=== PATIENT | male | born 1990 | race Caucasian/White ===

== ENCOUNTER 2020-01-23 14:50 | Emergency (ER) | payer OTHER ==
[2020-01-23 15:10] VITALS: BP 124/77; PULSE 82; RESP 18; TEMP 98.5
[2020-01-23] MEDS ORDERED: KETOROLAC 15 MG/ML 1 ML VIAL IM STA (15:50)
[2020-01-23] MEDS ORDERED: CYCLOBENZAPRINE 5 MG TAB PO STA (15:51)
--- NOTE | 2020-01-23 16:15 | XR ---
EXAMINATION TYPE: XR cervical spine comp DATE OF EXAM: 01/23/2020 COMPARISON: None HISTORY: 29-year-old male neck pain for one week TECHNIQUE: 5 views FINDINGS: No predental space widening or prevertebral soft tissue swelling. Reversal of the normal cervical maria e dosis but with preserved alignment. Minimal scattered facet spurring present. Disc interspaces are ma intained. No significant bony neuroforaminal narrowing on either side. Normal odontoid view. IMPRESSION: Reversal of the normal cervical lordosis could be positional or due to muscle spasm. No malalignment. No significant bony neuroforaminal narrowing on either side.
--- NOTE | 2020-01-23 16:56 | ED ---
General Adult HPI - General Chief complaint: Neck Pain/Injury Stated complaint: Back Pain Time Seen by Provider: 01/23/20 15:15 Source: patient, RN notes reviewed, old records reviewed Mode of arrival: ambulatory Limitations: no limitations - History of Present Illness Initial comments: 29-year-old male patient no pertinent past medical history of present to ED for evaluation of right paracervical pain with some radiation down his right arm. Patient reports that he recent started working out and then began experienced this. Denies any recent falls or trauma. Denies any weakness. Denies any other acute complaints. Systemic: Pt denies fatigue, fever/chills, rash. Pt denies weakness, night sweats, weight loss. Neuro: Pt denies headache, visual disturbances, syncope or pre-syncope. HEENT: Pt denies ocular discharge or irritation, otalgia, rhinorrhea, pharyngitis or notable lymphadenopathy. Cardiopulmonary: Pt denies chest pain, SOB, heart palpitations, dyspnea on exertion. Abdominal/GI: Pt denies abdominal pain, n/v/d. : Pt denies dysuria, burning w/ urination, frequency/urgency. Denies new onset urinary or bowel incontinence. MSK: Pt denies myalgia, loss of strength or function in extremities. Neuro: Pt denies new onset weakness, paresthesias. - Related Data Previous Rx's Medication Instructions Recorded Cyclobenzaprine [Flexeril] 1 tab PO TID PRN #15 tablet 01/23/20 predniSONE 50 mg PO DAILY #4 tab 01/23/20 Allergies Allergy/AdvReac Type Severity Reaction Status Date / Time amoxicillin Allergy Rash/Hives Verified 01/23/20 15:11 Review of Systems ROS Statement: Those systems with pertinent positive or pertinent negative responses have been documented in the HPI. ROS Other: All systems not noted in ROS Statement are negative. Past Medical History Past Medical History: No Reported History History of Any Multi-Drug Resistant Organisms: None Reported Past Surgical History: No Surgical Hx Reported Past Psychological History: Anxiety Smoking Status: Current every day smoker Past Alcohol Use History: Rare Past Drug Use History: Marijuana General Exam - General Exam Comments Initial Comments: Constitutional: NAD, AOX3, Pt has pleasant affect. HEENT: NC/AT, trachea midline, neck supple, no lymphadenopathy. Posterior pharynx non erythematous, without exudates. External ears appear normal, without discharge. Mucous membranes moist. Eyes PERRLA, EOM intact. There is no scleral icterus. No pallor noted. Cardiopulmonary: RRR, no murmurs, rubs or gallops, no JVD noted. Lungs CTAB in anterior and posterior pope. No peripheral edema. Abdominal exam: Abdomen soft and non-distended. Abdomen non-tender to palpation in all 4 quadrants. Bowel sounds active in LLQ. No hepatosplenomegaly. No ecchymosis Neuro: CN II-XII intact. No nuchal rigidity. No raccon eyes, no edmond sign, no hemotympanum. No cervical spinal tenderness. MSK: No posterior calf tenderness bilaterally, homans sign negative bilaterally. Posterior tibialis and radial pulse +2 bilaterally. Sensation intact in upper and lower extremities. Full active ROM in upper and lower extremities, 5/5 stregnth. Limitations: no limitations Course Vital Signs 01/23/20 15:07 Temperature 98.5 F Pulse Rate 82 Respiratory 18 Rate Blood Pressure 124/77 O2 Sat by Pulse 98 Oximetry Medical Decision Making - Medical Decision Making 29-year-old male patient with the chief complaint of muscle strain right paracervical region radiating down the right arm and some waxing waning subjective paresthesias. Patient vital signs are stable, afebrile. Strength is intact. There is no focal area of pain or tenderness. No skin changes. No nuchal rigidity. Films displayed reversal of the normal cervical lordosis could be positional due to muscle spasm. No malalignment. No significant bony neuroforaminal narrowing on either side. Patient will be placed on serial anti- inflammatories for steroid treatment will discharge the patient orthopedic and primary care follow-up. Case discussed with Dr. Sloan. Disposition Clinical Impression: Cervical strain, Cervical radiculopathy Disposition: HOME SELF-CARE Condition: Stable Instructions (If sedation given, give patient instructions): Cervical Sprain (ED), Cervical Radiculopathy (ED) Additional Instructions: Take steroids as directed. Follow up with primary care provider and orthopedic consult tomorrow. May use muscle relaxers as needed or muscle spasm. Use nonsteroidal anti-inflammatories for pain. Return to ER with any worsening symptoms. Prescriptions: Cyclobenzaprine [Flexeril] 1 tab PO TID PRN #15 tablet PRN Reason: muscle spasm predniSONE 50 mg PO DAILY #4 tab Is patient prescribed a controlled substance at d/c from ED?: No Referrals: None,Stated [Primary Care Provider] - 1-2 days Christine Min DO [Doctor of Osteopathic Medicine] - 1-2 days
== END 2020-01-23 17:15 | disposition home or self-care (01) ==
LOC: EC 14:50
DX: S16.1XXA Strain of muscle, fascia and tendon at neck level, initial encounter (principal); M54.12 Radiculopathy, cervical region; F17.200 Nicotine dependence, unspecified, uncomplicated; Z88.0 Allergy status to penicillin; X58.XXXA Exposure to other specified factors, initial encounter
CPT/HCPCS: 72050; 99284; 96372; J1885

== ENCOUNTER 2020-08-10 10:23 | Emergency (ER) | payer OTHER ==
[2020-08-10 10:33] VITALS: PULSE 87; RESP 17; TEMP 98.6
--- NOTE | 2020-08-10 10:47 | ED ---
General Adult HPI - General Chief complaint: Nausea/Vomiting/Diarrhea Stated complaint: Vomitting,Nausea,Dizzy Source: patient, RN notes reviewed Mode of arrival: ambulatory Limitations: no limitations - History of Present Illness Initial comments: 30-year-old male presented emergency department with possible exposure to carbon monoxide over the last several months. He noted that he lives with his mother and they recently got a new furnace that has been producing a foul-smelling odor. A furnace kristin was contacted become look at the new furnace. She was in no apparent distress or pain while sitting in the exam room during the exam and interview. She denied any shortness of breath cough chest pain somnolence vomiting diarrhea constipation fever fatigue chills. Patient does report that he smokes relate quite frequently and daily, noted that he smokes too much and needs to quit. - Related Data Home Medications Medication Instructions Recorded Confirmed No Known Home Medications 08/10/20 08/10/20 Allergies Allergy/AdvReac Type Severity Reaction Status Date / Time amoxicillin Allergy Rash/Hives Verified 08/10/20 11:57 Review of Systems ROS Statement: Those systems with pertinent positive or pertinent negative responses have been documented in the HPI. ROS Other: All systems not noted in ROS Statement are negative. Past Medical History Past Medical History: No Reported History History of Any Multi-Drug Resistant Organisms: None Reported Past Surgical History: No Surgical Hx Reported Past Psychological History: Anxiety Smoking Status: Vaper Past Alcohol Use History: Rare Past Drug Use History: Marijuana General Exam Limitations: no limitations General appearance: alert, in no apparent distress Head exam: Present: atraumatic, normocephalic, normal inspection Eye exam: Present: normal appearance, PERRL, EOMI. Absent: scleral icterus, conjunctival injection, periorbital swelling ENT exam: Present: normal exam, mucous membranes moist Neck exam: Present: normal inspection. Absent: tenderness, meningismus, lymphadenopathy Respiratory exam: Present: normal lung sounds bilaterally. Absent: respiratory distress, wheezes, rales, rhonchi, stridor Cardiovascular Exam: Present: regular rate, normal rhythm, normal heart sounds. Absent: systolic murmur, diastolic murmur, rubs, gallop, clicks GI/Abdominal exam: Present: soft, normal bowel sounds. Absent: distended, tenderness, guarding, rebound, rigid Extremities exam: Present: normal inspection, full ROM, normal capillary refill. Absent: tenderness, pedal edema, joint swelling, calf tenderness Neurological exam: Present: alert, oriented X3, CN II-XII intact Psychiatric exam: Present: normal affect, normal mood Skin exam: Present: warm, dry, intact, normal color. Absent: rash Course Vital Signs 08/10/20 10:30 Temperature 98.6 F Pulse Rate 87 Respiratory 17 Rate Blood Pressure 181/75 O2 Sat by Pulse 98 Oximetry Medical Decision Making - Medical Decision Making 30-year-old male complaining of possible exposure to carbon monoxide. Venous blood gas carbon monoxide nonrebreather with 15 L/m, CBC, CMP ordered. Labs unremarkable, carbon monoxide 2.5, patient is a smoker. Case discussed with Dr. Lindsay, patient could discharge home. - Lab Data Result diagrams: 08/10/20 11:24 Lab Results 08/10/20 08/10/20 08/10/20 Range/Units 11:24 11:24 11:24 VBG pH 7.39 (7.31-7.41) VBG pCO2 40 (37-51) mmHg VBG HCO3 24 (24-28) mmol/L Carbon Monoxide, Quant 2.5 (<10.0) % Sodium 138 (137-145) mmol/L Potassium 4.5 (3.5-5.1) mmol/L Chloride 103 (98-107) mmol/L Carbon Dioxide 23 (22-30) mmol/L Anion Gap 12 mmol/L BUN 12 (9-20) mg/dL Creatinine 0.96 (0.66-1.25) mg/dL Est GFR (CKD-EPI)AfAm >90 (>60 ml/min/1.73 sqM) Est GFR (CKD-EPI)NonAf >90 (>60 ml/min/1.73 sqM) Glucose 111 H (74-99) mg/dL Calcium 10.2 (8.4-10.2) mg/dL Total Bilirubin 0.6 (0.2-1.3) mg/dL AST 26 (17-59) U/L ALT 13 (4-49) U/L Alkaline Phosphatase 58 (38-126) U/L Total Protein 8.9 H (6.3-8.2) g/dL Albumin 5.3 H (3.5-5.0) g/dL Disposition Clinical Impression: Carbon monoxide exposure Disposition: HOME SELF-CARE Condition: Stable Instructions (If sedation given, give patient instructions): Carbon Monoxide Poisoning (ED) Additional Instructions: Please return to the Emergency Department if symptoms worsen or any other concerns. Leave furnace off, crack windows to air out apartment. If needed get a hotel or still family for a few days until problem can be reso lved. If increase in headache, somnolence please return the emergency Department for oxygen therapy Is patient prescribed a controlled substance at d/c from ED?: No Referrals: None,Stated [Primary Care Provider] - 1-2 days Time of Disposition: 12:14
[2020-08-10 11:39] LABS: VBG PH 7.39 (7.31-7.41)
[2020-08-10 11:49] LABS: ALT 13 U/L (4-49); AST 26 U/L (17-59); African American GFR (CKD) >90 (>60 ml/min/1.73 sqM); Albumin 5.3 g/dL (3.5-5.0); Alkaline Phosphatase 58 U/L (38-126); Blood Urea Nitrogen 12 mg/dL (9-20); Calcium 10.2 mg/dL (8.4-10.2); Carbon Dioxide 23 mmol/L (22-30); Glucose 111 mg/dL (74-99); Non-African American GFR(CKD) >90 (>60 ml/min/1.73 sqM); Potassium 4.5 mmol/L (3.5-5.1); Sodium 138 mmol/L (137-145); Total Bilirubin 0.6 mg/dL (0.2-1.3); Total Protein 8.9 g/dL (6.3-8.2)
[2020-08-10 12:05] LABS: Anion Gap 12 mmol/L; Chloride 103 mmol/L (98-107)
[2020-08-10 12:32] LABS: Basophils % (A) 0 %; Eosinophils % (A) 0 %; HCT 45.5 % (39.0-53.0); HGB 15.2 gm/dL (13.0-17.5); Lymphocytes # (A) 2.2 k/uL (1.0-4.8); Lymphocytes % (A) 26 %; MCH 27.7 pg (25.0-35.0); MCHC 33.3 g/dL (31.0-37.0); MCV 83.1 fL (80.0-100.0); Mean Platelet Volume 6.8; Monocytes # (A) 0.3 k/uL (0-1.0); Monocytes % (A) 4 %; Neutrophils # (A) 5.7 k/uL (1.3-7.7); Neutrophils % (A) 69 %; Platelet Count 411 k/uL (150-450); RBC 5.48 m/uL (4.30-5.90); RDW 12.8 % (11.5-15.5); WBC 8.3 k/uL (3.8-10.6)
[2020-08-10 12:45] VITALS: BP 167/87
== END 2020-08-10 12:45 | disposition home or self-care (01) ==
LOC: EC 10:23
DX: R42 Dizziness and giddiness (principal); Z77.29 Contact with and (suspected) exposure to other hazardous substances; F17.290 Nicotine dependence, other tobacco product, uncomplicated; F41.9 Anxiety disorder, unspecified; F12.90 Cannabis use, unspecified, uncomplicated
CPT/HCPCS: 36415; 80053; 82375; 82803; 85025; 99284

== ENCOUNTER 2024-03-03 15:57 | Emergency (ER) | payer BC ==
[2024-03-03 16:01] VITALS: TEMP 99
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
[2024-03-03 18:02] VITALS: BP 135/78; PULSE 92; RESP 16
== END 2024-03-03 18:10 | disposition home or self-care (01) ==
LOC: EC 15:57
CPT/HCPCS: 70450; 72125; 99284